=== PATIENT | male | born 1965 | race Caucasian/White ===

== ENCOUNTER → 2018-04-28 | Outpatient (CLI) | payer MEDICARE, MEDICAID ==
[~2018-04-28] MED LIST: ALPR1TAB7 PO; FLUO0.054 TOP; PAR20T PO; PERCOT; [UNRECOGNIZED DRUG - CODE] VI
[2018-04-28 08:41] LABS: Alcohol, Urine < 3.0 mg/dL (0-5); Amphetamine Screen, Urine NEGATIVE (NEGATIVE); Barbiturate Scree,Urine NEGATIVE (NEGATIVE); Benzodiazephine Screen, Urine POSITIVE (NEGATIVE); Cannabinoid Screen, Urine POSITIVE (NEGATIVE); Cocaine Screen, Urine NEGATIVE (NEGATIVE); Opiate Scree,Urine NEGATIVE (NEGATIVE); Phencyclidine Screen, Urine NEGATIVE (NEGATIVE)
== END | disposition home or self-care (01) ==
LOC: LAB 07:27
PROVIDERS: ATTEND Nurse Practitioner
DX: Z02.83 Encounter for blood-alcohol and blood-drug test (principal); F41.9 Anxiety disorder, unspecified; Z87.891 Personal history of nicotine dependence; Z79.899 Other long term (current) drug therapy
CPT/HCPCS: 80307

== ENCOUNTER 2020-05-02 14:49 | Emergency (ER) | payer MEDICAID, MEDICARE ==
[~2020-05-02] VITALS: Ht 180.3 cm; Wt 72.6 kg
[2020-05-02] MEDS ORDERED: InsuLIN REG 1unit/0.01ml Soln (100units/ml) IV ONE (15:00)
[2020-05-02] MEDS ORDERED: SODIUM CHLORIDE 0.9% 1,000 ML IV ONE (15:00)
[2020-05-02 15:52] LABS: Albumin 3.6 g/dL (3.4-5.0); Calcium 8.9 mg/dL (8.5-10.1); Potassium 3.1 mmol/L (3.5-5.1)
[2020-05-02 15:55] LABS: BUN/Creatinine Ratio 8.2; Bilirubin, Total 0.4 mg/dL (0.2-1.0); Total Protein 6.9 g/dL (6.4-8.2)
[2020-05-02 16:44] LABS: Basophils # (auto) 0.1 10 ^3/uL (0-0.2); Eosinophils # (auto) 0.1 10 ^3/uL (0-0.8); Hematocrit 42.5 % (41.0-53.0); Lymphocytes # (auto) 2.1 10 ^3/uL (0.4-5.4); Lymphocytes % (auto) 25.8 % (10.0-50.0); Mean Corpuscular Hgb Conc. 35.4 g/dL (32.0-36.0); Monocytes # (auto) 0.5 10 ^3/uL (0-1.3); Monocytes % (auto) 6.1 % (0.0-12.0); Neutrophils # (auto) 5.5 10 ^3/uL (1.6-8.6); Neutrophils % (auto) 66.1 % (37.0-80.0); Nucleated Red Blood Cells % 0.1 %; Platelet Count (auto) 209 10^3/uL (140-450); Red Blood Cells 5.19 10^6/uL (4.5-5.90); Red Cell Distribution Width 13.2 % (11.8-14.3); White Blood Cell 8.3 10^3/uL (4.4-10.8)
[2020-05-02 17:00] VITALS: BP 106/71
== END 2020-05-02 17:14 | disposition home or self-care (01) ==
LOC: ER 14:49
DX: E11.65 Type 2 diabetes mellitus with hyperglycemia (principal); I10 Essential (primary) hypertension; F17.210 Nicotine dependence, cigarettes, uncomplicated
CPT/HCPCS: 36415; 80053; 82962; 85025; 96361; 96374; 99283; J1815; J7030

== ENCOUNTER 2021-01-11 14:37 | Emergency (ER) | payer MEDICARE ==
[~2021-01-11] VITALS: Ht 180.3 cm; Wt 67.1 kg
[2021-01-11 14:53] VITALS: BP 174/91
== END 2021-01-11 17:00 | disposition left against medical advice (07) ==
LOC: ER 14:46
DX: M79.671 Pain in right foot (principal); Z53.21 Procedure and treatment not carried out due to patient leaving prior to being seen by health care provider; W22.8XXA Striking against or struck by other objects, initial encounter; Y93.89 Activity, other specified; Y92.89 Other specified places as the place of occurrence of the external cause; Y99.8 Other external cause status
CPT/HCPCS: 73630

== ENCOUNTER 2022-09-16 14:01 | Emergency (ER) | payer OTHER, MEDICAID ==
[~2022-09-16] VITALS: Ht 180.3 cm; Wt 67.6 kg
[2022-09-16 15:05] VITALS: BP 143/83
[2022-09-16] MEDS ORDERED: PIPERACILLIN-TAZOB 3.375GM 100 ML IV ONE (15:45)
[2022-09-16 15:55] LABS: Eosinophils # (auto) 0.1 10 ^3/uL (0-0.8); Hemoglobin 11.9 g/dL (13.5-17.5); Red Cell Distribution Width 14.3 % (11.8-14.3)
[2022-09-16 15:57] LABS: Basophils # (auto) 0 10 ^3/uL (0-0.2); Basophils % (auto) 0.5 % (0.0-2.0); Eosinophils % (auto) 1.8 % (0.0-7.0); Hematocrit 35.2 % (41.0-53.0); Lymphocytes # (auto) 0.9 10 ^3/uL (0.4-5.4); Mean Corpuscular Hemoglobin 25.5 pg (28.0-32.0); Mean Corpuscular Hgb Conc. 33.8 g/dL (32.0-36.0); Mean Corpuscular Volume 75.3 fL (80.0-100.0); Monocytes # (auto) 0.6 10 ^3/uL (0-1.3); Monocytes % (auto) 7.9 % (0.0-12.0); Neutrophils # (auto) 6.1 10 ^3/uL (1.6-8.6); Neutrophils % (auto) 77.8 % (37.0-80.0); Nucleated Red Blood Cells % 0.1 %; Red Blood Cells 4.67 10^6/uL (4.5-5.90); White Blood Cell 7.8 10^3/uL (4.4-10.8)
[2022-09-16 16:11] LABS: Albumin 2.7 g/dL (3.4-5.0); BUN/Creatinine Ratio 11.5; Calcium 9.1 mg/dL (8.5-10.1); Potassium 3.3 mmol/L (3.5-5.1)
[2022-09-16 16:14] LABS: Bilirubin, Total 0.5 mg/dL (0.2-1.0); Total Protein 7.7 g/dL (6.4-8.2)
[2022-09-16 16:15] LABS: Lactic Acid w/Reflex 4.6 mmol/L (0.4-2.0)
[2022-09-16] MEDS ORDERED: HYDROcodone-ACET 5/325MG TAB PO ONE (16:15)
[2022-09-16 16:39] LABS: Magnesium 1.8 mg/dL (1.6-2.6)
[2022-09-16 16:48] LABS: CRP High Sensitivity 15.7 mg/dL (< 0.3)
== END 2022-09-16 22:53 | disposition left against medical advice (07) ==
LOC: ER 14:01
DX: E11.621 Type 2 diabetes mellitus with foot ulcer (principal); R74.02 Elevation of levels of lactic acid dehydrogenase [LDH]; I10 Essential (primary) hypertension; F17.210 Nicotine dependence, cigarettes, uncomplicated; F12.10 Cannabis abuse, uncomplicated; Z88.6 Allergy status to analgesic agent; Z79.899 Other long term (current) drug therapy; Z79.84 Long term (current) use of oral hypoglycemic drugs
CPT/HCPCS: 36415; 73700; 80053; 82962; 83605; 83735; 85025; 85652; 86141; 87040; 96365; 96366; 99285; J2543

== ENCOUNTER 2023-05-16 12:17 | Emergency (ER) | payer MEDICARE, MEDICAID ==
[~2023-05-16] VITALS: Ht 175.3 cm; Wt 64.0 kg
[2023-05-16 12:40] VITALS: BP 134/73; PULSE 100; RESP 18; O2SAT 99
[2023-05-16 13:39] LABS: Basophils # (auto) 0 10 ^3/uL (0-0.2); Eosinophils # (auto) 0.3 10 ^3/uL (0-0.8); Hemoglobin 11.5 g/dL (13.5-17.5)
[2023-05-16 13:41] LABS: Basophils % (auto) 0.3 % (0.0-2.0); Eosinophils % (auto) 3.3 % (0.0-7.0); Hematocrit 33.5 % (41.0-53.0); Lymphocytes # (auto) 1.8 10 ^3/uL (0.4-5.4); Lymphocytes % (auto) 20.3 % (10.0-50.0); Mean Corpuscular Hemoglobin 26.4 pg (28.0-32.0); Mean Corpuscular Hgb Conc. 34.2 g/dL (32.0-36.0); Mean Corpuscular Volume 77.3 fL (80.0-100.0); Monocytes # (auto) 0.8 10 ^3/uL (0-1.3); Monocytes % (auto) 8.9 % (0.0-12.0); Neutrophils # (auto) 6.1 10 ^3/uL (1.6-8.6); Neutrophils % (auto) 67.2 % (37.0-80.0); Nucleated Red Blood Cells % 0.1 %; Red Blood Cells 4.34 10^6/uL (4.5-5.90); Red Cell Distribution Width 16.8 % (11.8-14.3)
[2023-05-16 13:56] LABS: Albumin 3.9 g/dL (3.2-4.8); Alkaline Phosphatase 93 U/L (46-116); Anion Gap 10 (5-15); Aspartate Aminotransferase < 8 U/L (13-40); BUN/Creatinine Ratio 16.7 (10.0-20.0); Blood Urea Nitrogen 11 mg/dL (9-23); Calcium 8.4 mg/dL (8.5-10.1); Carbon Dioxide 18 mmol/L (20-30); Chloride 116 mmol/L (98-107); Glucose 260 mg/dL (74-106); Potassium 3.4 mmol/L (3.5-5.1); Sodium 144 mmol/L (136-145)
[2023-05-16 13:57] LABS: Bilirubin, Total 0.3 mg/dL (0.2-1.0); Total Protein 7.1 g/dL (5.7-8.2)
[2023-05-16 14:01] LABS: Alanine Aminotransferase < 9 U/L (7-40)
[2023-05-16 16:43] LABS: Alkaline Phosphatase 99 U/L (46-116); Anion Gap 10 (5-15); Aspartate Aminotransferase < 8 U/L (13-40); BUN/Creatinine Ratio 19.4 (10.0-20.0); Blood Urea Nitrogen 12 mg/dL (9-23); Calcium 8.4 mg/dL (8.7-10.4); Carbon Dioxide 16 mmol/L (20-30); Chloride 116 mmol/L (98-107); Glucose 268 mg/dL (74-106); Lipase 36 U/L (12-53); Magnesium 1.3 mg/dL (1.6-2.6); Potassium 3.4 mmol/L (3.5-5.1); Sodium 142 mmol/L (136-145)
[2023-05-16 16:44] LABS: Bilirubin, Total 0.2 mg/dL (0.2-1.0); Total Protein 7.1 g/dL (5.7-8.2)
[2023-05-16 16:45] LABS: Alanine Aminotransferase < 9 U/L (7-40)
== END 2023-05-16 17:39 | disposition left against medical advice (07) ==
LOC: EDBD 12:17 → ER 12:17
DX: R10.84 Generalized abdominal pain (principal); R11.2 Nausea with vomiting, unspecified; R19.7 Diarrhea, unspecified; I10 Essential (primary) hypertension; E11.9 Type 2 diabetes mellitus without complications; F17.210 Nicotine dependence, cigarettes, uncomplicated; Z79.899 Other long term (current) drug therapy; Z88.5 Allergy status to narcotic agent; Z88.8 Allergy status to other drugs, medicaments and biological substances
CPT/HCPCS: 36415; 80053; 83690; 83735; 85025; 93005